=== PATIENT | female | born 2000 | race Two or more races ===

== ENCOUNTER 2025-01-16 15:05 | Observation (INO) | payer MEDICAID ==
[~2025-01-16] VITALS: Ht 170.2 cm; Wt 92.5 kg
--- NOTE | 2025-01-16 16:27 | DVH ---
EXAM: US BIOPHYSICAL PROFILE HISTORY: term COMPARISON: None TECHNIQUE: Multiple transabdominal real-time grayscale sonographic images through the gravid uterus of the fetus with duplex Doppler color flow and M-mode spectral analysis Findings/Impression: Single live intrauterine in vertex presentation with heart rate of 138 bpm. Biophysical profile was performed with 2 points for respirations, 2 points for movement, 2 points for tone and 2 points for amniotic fluid index. Biophysical profile score of 8/8. Amniotic fluid is within normal limits with SHERI 8.0 cm and MVP 2.5 cm. Normal SHERI (5-25 cm) Normal MVP (2-8 cm)
--- NOTE | 2025-01-16 17:10 | DVHDS2 ---
Physician Discharge Progress N Final Diagnosis: iup at 40wks Operations or Procedures: Operations or Procedures nst,sono Other Interventions Other Interventions induction on friday Condition on Discharge: Good Disposition: Home Discharge Instructions: Diet: Regular Activity: Light activity Medications: na Follow Up Care: Specialist: 2d Discharge Statement: "Patient was advised to return to the ER or call 911 if any headaches, dizziness, shortness of breath, chest pain, abdominal pain, bleeding, fevers, or worsening of medical condition. Patient was counseled about treatment plan, medications, possible side effects, patientverbalized understanding. All questions were answered to the best of my ability. This discharge took greater then 30 minutes in planning, reviewing documentation, counseling the patient, and discussing with other team members." Visit Coding OBGYN Date of Service: Jan 16, 2025 Billing Provider: PARMJIT GORMAN DO LEVEL VIAL SEALER Common Visit Codes: 53189-[id number] INP/OBS CARE (HIGH) LEVEL VIAL SEALER Procedure Codes: 22321-94- NON-STRESS TEST PARMJIT GORMAN DO Jan 16, 2025 17:10
[2025-01-18] MEDS ORDERED: DOCU-94 PO (23:35)
[2025-01-18] MEDS ORDERED: PREN-96 PO (23:35)
[2025-01-18] MEDS ORDERED: IBU600T PO (23:35)
== END 2025-01-16 16:39 | disposition home or self-care (01) ==
LOC: LDRP 15:05
PROVIDERS: ADMIT Obstetrics & Gynecology; ATTEND Obstetrics & Gynecology
DX: O48.0 Post-term pregnancy (principal); Z3A.40 40 weeks gestation of pregnancy; Z79.899 Other long term (current) drug therapy; Z98.890 Other specified postprocedural states
CPT/HCPCS: 76818; 81002; 94760; G0378; 76819